=== PATIENT | female | born 1945 | race Caucasian/White ===

== ENCOUNTER → 2023-09-28 13:53 | Outpatient (CLI) | payer MEDICARE, SELFPAY ==
[2023-09-28 19:45] LABS: BUN Creatinine Ratio 35.4 (6-22); Blood Urea Nitrogen 28 mg/dL (7-17); Calcium 10.1 mg/dL (8.4-10.2); Carbon Dioxide 30 mmol/L (22-32); Chloride 103 mmol/L (98-107); Estimated Glomerular Filt Rate > 60 mL/min (>60); Glucose 121 mg/dL (80-110); HEMOLYSIS < 15 (0-50); Potassium 4.1 mmol/L (3.4-5.1); Sodium 142 mmol/L (137-145)
== END ==
PROVIDERS: Visit Provider Internal Medicine
DX: E22.2 Syndrome of inappropriate secretion of antidiuretic hormone (principal)
CPT/HCPCS: 80048